=== PATIENT | female | born 1985 | race Two or more races ===

== ENCOUNTER 2018-04-11 06:20 | Day surgery (SDC) | payer OTHER ==
[~2018-04-11 06:20] MED LIST: NABUMETONE750 MG PO; OXYC1TAB9 PO; PRENATABS RX T1 EACH PO
[2018-04-11] MEDS ORDERED: NABUMETONE750 MG PO (11:08)
[2018-04-11] MEDS ORDERED: DOXYCYCLINE HY100 MG PO (11:09)
== END 2018-04-11 13:20 | disposition home or self-care (01) ==
LOC: CIR.AMB 06:20
DX: O02.1 Missed abortion (principal); Z3A.10 10 weeks gestation of pregnancy

== ENCOUNTER 2024-01-10 04:52 | Inpatient (IN) | payer OTHER ==
[~2024-01-10] VITALS: Ht 160 cm; Wt 3.2 kg
[~2024-01-10 04:52] MED LIST changes: +DOXYCYCLINE HY100 MG PO
[2024-01-10] MEDS ORDERED: PRENATABS RX T1 EACH PO (05:39)
[2024-01-10] MEDS ORDERED: CEFAZOLIN SODIUM 1,000 MG VIAL IV SCH ×2 (05:45→12:00)
[2024-01-10] MEDS ORDERED: RINGERS SOLUTION,LACTATED 1,000 ML IV SCH (05:45)
[2024-01-10] MEDS ORDERED: CHLORHEXIDINE GLUCONATE 120 ML BOTTLE TOP ONE (07:15)
[2024-01-10] MEDS ORDERED: ERYTHROMYCIN BASE 1 GM TUBE OP ONE ×2 (07:17→16:00)
[2024-01-10] MEDS ORDERED: OXYTOCIN 10 UNITS/ML VIAL ONE (07:17)
[2024-01-10] MEDS ORDERED: LOVENOX80 MG/0.8 SUBCUTANEO (07:23)
[2024-01-10] MEDS ORDERED: CEFAZOLIN SODIUM 1,000 MG VIAL ONE ×2 (07:29→11:23)
[2024-01-10] MEDS ORDERED: CARBOPROST TROMETHAMINE 250 MCG/ML AMPUL IM ONE ×2 (08:58→16:00)
[2024-01-10] MEDS ORDERED: ENOXAPARIN40 MG/0.4 (09:25)
[2024-01-10] MEDS ORDERED: MEPERIDINE HCL/PF 50 MG/ML VIAL IM SCH (10:00)
[2024-01-10] MEDS ORDERED: MEPERIDINE HCL/PF 50 MG,MEPERIDINE HCL/PF 25 MG IM SCH (11:15)
[2024-01-10] MEDS ORDERED: PROMETHAZINE HCL 25 MG/ML AMPUL IV SCH (12:00)
[2024-01-10] MEDS ORDERED: OXYTOCIN 10 UNITS/ML VIAL IV ONE (16:00)
[2024-01-11] MEDS ORDERED: OxyCODONE HCL/APAP UD (PERCOCET) PO PRN (08:15)
[2024-01-11 08:56] LABS: HEMATOCRIT 32.5 % (36.0-45.00); HEMOGLOBIN 10.9 g/dL (12.0-15.00); MEAN CELL VOLUME 86.3 fL (80.00-100.00); MEAN CORPUSCULAR HEMOGLOBIN 28.9 pg (27.00-32.0); MEAN CORPUSCULAR HGB CONC 33.5 g/dl (32.0-36.0); PLATELET COUNT 212 K/uL (150-450); RED BLOOD COUNT 3.77 M/uL (4.00-6.00); RED CELL DISTRIBUTION WIDTH 13.3 % (11.5-14.5)
== END 2024-01-13 13:23 | disposition home or self-care (01) | DRG 785 ==
LOC: O/R 04:52 → LDR 04:52 → O/R 08:48 → OB/GYN 09:47
PROVIDERS: ADMIT Specialist; ATTEND Specialist
PROC: 0UB70ZZ Excision of Bilateral Fallopian Tubes, Open Approach (ICD-10-PCS; 2024-01-10)
PROC: 4A1HXCZ Monitoring of Products of Conception, Cardiac Rate, External Approach (ICD-10-PCS; 2024-01-10)
PROC: 10D00Z1 Extraction of Products of Conception, Low, Open Approach (ICD-10-PCS; principal; 2024-01-10 09:00)
DX: O34.211 Maternal care for low transverse scar from previous cesarean delivery (principal); Z3A.37 37 weeks gestation of pregnancy; Z30.2 Encounter for sterilization; Z37.0 Single live birth; Z20.822 Contact with and (suspected) exposure to COVID-19